=== PATIENT | female | born 1985 | race Hispanic/Latino ===

== ENCOUNTER 2017-10-02 06:29 | Inpatient (IN) | payer OTHER ==
[2017-10-02 07:43] VITALS: BMI 35.9
[2017-10-02] MEDS ORDERED: Butorphanol Tartrate 1 MG/ML VIAL SLOW IVP PRN ×2 (07:43→07:47)
[2017-10-02] MEDS ORDERED: Lidocaine 1% (PF) 30 ML VIAL SC PRN (07:43)
[2017-10-02] MEDS ORDERED: Ondansetron HCl/PF 4 MG/2 ML Vial IVP PRN ×4 (07:43→18:11)
[2017-10-02] MEDS ORDERED: Lactated Ringer's 1,000 ML IV SCH (07:43)
[2017-10-02] MEDS ORDERED: Ibuprofen 800 MG TAB PO PRN (07:43)
[2017-10-02] MEDS ORDERED: NS / Oxytocin 40 units/1000ml 1,000 ML IV PRN (07:43)
[2017-10-02] MEDS ORDERED: Promethazine HCl 25 MG/ML VIAL IM PRN ×3 (07:43→11:17)
[2017-10-02] MEDS ORDERED: HYDROcodone/Acetaminophen 5/325 mg Tablet PO PRN ×2 (07:43)
[2017-10-02] MEDS ORDERED: Diphenoxylate HCl/Atropine Tablet PO PRN ×2 (07:43)
[2017-10-02] MEDS ORDERED: NS w/ Oxytocin 10 units 500 ML IV SCH (07:43)
[2017-10-02] MEDS ORDERED: Acetaminophen 500 MG TAB PO PRN ×2 (07:43→07:47)
[2017-10-02] MEDS ORDERED: Docusate 100 MG CAP PO PRN (07:43)
[2017-10-02 07:54] LABS: Hemoglobin 11.7 g/dL (12.0-16.0); Mean Corpuscular HGB CONC 34.1 g/dL (32.0-36.0); Mean Corpuscular Hemoglobin 30.5 pg (27.0-31.0); Mean Corpuscular Volume 89.4 fL (78.0-98.0); Mean Platelet Volume 9.6 fL (7.4-10.4); Platelet Count 198 thou/uL (130-400); RBC Distribution Width 12.7 % (11.5-14.5); Red Blood Cell (RBC) Count 3.82 mill/uL (4.20-5.40); White Blood Cell (WBC) Count 8.9 thou/uL (4.8-10.8)
[2017-10-02] MEDS ORDERED: NS w/ Oxytocin 10 units 500 ML IVPB SCH (08:00)
[2017-10-02] MEDS: Lactated Ringer's 1,000 ML IV SCH ×3 (08:01→14:42)
[2017-10-02 08:31] LABS: HBSAg Index 0.21 S/CO (0-0.99); Hep B Surf Ag Non-Reactive S/CO (NonReactive); Syphilis Antibody Nonreactive (Nonreactive); Syphilis Antibody Index 0.06 S/CO (<1.00 Non-Reactive)
[2017-10-02] MEDS ORDERED: Bupivacaine 0.75% 13.4 ML, fentaNYL Citrate/PF 400 MCG in Sodium Chloride 0.9% 78.6 ML EPIDURAL SCH (09:30)
[2017-10-02] MEDS ORDERED: DISCONTINUE ALL PREVIOUS NARCOTICS FS SCH (09:30)
[2017-10-02] MEDS ORDERED: Lidocaine HCl/Epinephrine 5 ML AMPUL IJ ONE (10:48)
[2017-10-02] MEDS ORDERED: Lactated Ringer's 500 ML IV PRN (11:17)
[2017-10-02] MEDS ORDERED: diphenhydrAMINE 50 MG/ML VIAL IVP PRN (11:17)
[2017-10-02] MEDS ORDERED: Acetaminophen 325 MG TAB PO PRN (11:17)
[2017-10-02] MEDS ORDERED: Naloxone HCl 0.4 mg/ml Vial IVP PRN ×2 (11:17)
[2017-10-02] MEDS ORDERED: ePHEDrine/0.9% NaCl/PF SYRINGE 50 mg/10 ml SLOW IVP PRN (11:17)
[2017-10-02] MEDS ORDERED: Eucerin (Mineral Oil/Petrolatum,White) 30 gm Jar TOP PRN (11:17)
[2017-10-02] MEDS ORDERED: Communication Order-Pharmacy FS SCH (11:30)
[2017-10-02] MEDS ORDERED: fentaNYL Citrate/PF 400 MCG, Bupivacaine 0.5% 20 ML in Sodium Chloride 0.9% 72 ML EPIDURAL SCH (11:30)
[2017-10-02] MEDS ORDERED: Lanolin Ointment 7 GM TUBE TOP PRN (18:11)
[2017-10-02] MEDS ORDERED: diphenhydrAMINE 25 MG CAP PO PRN (18:11)
[2017-10-02] MEDS ORDERED: Benzocaine/Menthol 20-0.5% 60 ML CAN TOP PRN (18:11)
[2017-10-02] MEDS ORDERED: Bisacodyl 10 MG SUPP PR PRN (18:11)
[2017-10-02] MEDS ORDERED: Milk Of Magnesia 30 ML UDCUP PO PRN (18:11)
[2017-10-02] MEDS ORDERED: Zolpidem Tartrate 5 MG TAB PO PRN (18:11)
[2017-10-02] MEDS ORDERED: Preparation H Ointment 28 GM TUBE PR PRN (18:11)
[2017-10-02] MEDS ORDERED: Acetaminophen/Codeine 30-300mg Tablet PO PRN ×2 (18:11)
[2017-10-02] MEDS ORDERED: NS / Oxytocin 40 units/1000ml 1,000 ML IV SCH (18:15)
[2017-10-02] MEDS: Docusate Calcium (SURFAK) 240 MG CAP PO SCH (21:48)
[2017-10-02] MEDS: Ibuprofen 800 MG TAB PO SCH (21:48)
[2017-10-03] MEDS: Ibuprofen 800 MG TAB PO SCH ×3 (05:32→21:24)
[2017-10-03 05:50] LABS: Hemoglobin 10.9 g/dL (12.0-16.0); Mean Corpuscular HGB CONC 33.3 g/dL (32.0-36.0); Mean Corpuscular Hemoglobin 29.8 pg (27.0-31.0); Mean Corpuscular Volume 89.4 fL (78.0-98.0); Mean Platelet Volume 9.1 fL (7.4-10.4); Platelet Count 187 thou/uL (130-400); RBC Distribution Width 12.7 % (11.5-14.5); Red Blood Cell (RBC) Count 3.67 mill/uL (4.20-5.40); White Blood Cell (WBC) Count 10.7 thou/uL (4.8-10.8)
[2017-10-03] MEDS ORDERED: Adacel (T-DAP) 0.5 ML VIAL IM ONE (09:00)
[2017-10-03] MEDS: Ferrous Sulfate 325 MG TAB PO SCH ×2 (09:09→21:15)
[2017-10-03] MEDS: Prenatal Vitamin 1 TAB PO SCH (09:17)
[2017-10-03] MEDS: Docusate Calcium (SURFAK) 240 MG CAP PO SCH ×2 (09:17→21:24)
[2017-10-03 21:14] VITALS: TEMP 98.8
[2017-10-04] MEDS: Ibuprofen 800 MG TAB PO SCH (06:03)
[2017-10-04 07:35] VITALS: BP 137/65
[2017-10-04] MEDS: Ferrous Sulfate 325 MG TAB PO SCH (08:58)
[2017-10-04] MEDS: Prenatal Vitamin 1 TAB PO SCH (09:00)
[2017-10-04] MEDS: Docusate Calcium (SURFAK) 240 MG CAP PO SCH (09:00)
== END 2017-10-04 13:30 | disposition home or self-care (01) | DRG 775 ==
LOC: L&D 06:29 → 3SW 21:11
PROVIDERS: ADMIT Obstetrics & Gynecology; ATTEND Obstetrics & Gynecology
PROC: 10E0XZZ Delivery of Products of Conception, External Approach (ICD-10-PCS; principal; 2017-10-02)
PROC: 10907ZC Drainage of Amniotic Fluid, Therapeutic from Products of Conception, Via Natural or Artificial Opening (ICD-10-PCS; 2017-10-02)
PROC: 3E033VJ Introduction of Other Hormone into Peripheral Vein, Percutaneous Approach (ICD-10-PCS; 2017-10-02)
DX: O16.4 Unspecified maternal hypertension, complicating childbirth (principal); Z3A.39 39 weeks gestation of pregnancy; Z37.0 Single live birth
CPT/HCPCS: 36415; 51702; 85027; 86780; 86850; 86900; 86901; 87340; J2001; J3010; J3490; J7050

== ENCOUNTER 2017-10-05 06:20 | Emergency (ER) | payer OTHER ==
[2017-10-05] MEDS ORDERED: hydrALAZINE 25 MG TAB ONE (06:52)
[2017-10-05 07:12] LABS: #Basophils 0.1 thou/uL (0.0-0.2); #Eosinphils 0.2 thou/uL (0.0-0.7); #Lymphocytes 2.3 thou/uL (1.20-3.40); #Monocytes 0.7 thou/uL (0.11-0.59); #Neutrophils 4.8 thou/uL (1.40-6.50); %Eosinophils 2.4 % (0.0-10.0); %Lymphocytes 28.6 % (21.0-51.0); %Monocytes 8.8 % (0.0-10.0); %Neutrophils 59.2 % (42.0-75.0); Hemoglobin 10.8 g/dL (12.0-16.0); Mean Corpuscular HGB CONC 34.2 g/dL (32.0-36.0); Mean Corpuscular Hemoglobin 30.6 pg (27.0-31.0); Mean Corpuscular Volume 89.6 fL (78.0-98.0); Mean Platelet Volume 9.1 fL (7.4-10.4); Platelet Count 201 thou/uL (130-400); RBC Distribution Width 12.9 % (11.5-14.5); Red Blood Cell (RBC) Count 3.52 mill/uL (4.20-5.40); White Blood Cell (WBC) Count 8.1 thou/uL (4.8-10.8)
[2017-10-05 07:29] LABS: ALT (SGPT) 10 U/L (8-55); AST (SGOT) 14 U/L (5-34); Alkaline Phosphatase 118 U/L (40-150); Anion Gap 12 mmol/L (10-20); BUN (Urea Nitrogen) 8 mg/dL (7.0-18.7); Bilirubin, Total 0.3 mg/dL (0.2-1.2); Calc. Creatinine Clearance 0 mL/min (70-130); Calcium 8.7 mg/dL (7.8-10.44); Carbon Dioxide 22 mmol/L (22-29); Chloride 110 mmol/L (98-107); Estimated GFR-MDRD Greater than 90; Globulin 2.8 g/dL (2.4-3.5); Glucose 83 mg/dL (70-105); Potassium 3.7 mmol/L (3.5-5.1); Protein, Total 5.8 g/dL (6.0-8.3); Sodium 140 mmol/L (136-145)
[2017-10-05 07:34] LABS: CKMB 0.7 ng/mL (0-6.6); Troponin I Less than 0.010 ng/mL (< 0.028)
--- NOTE | 2017-10-05 07:39 | RAD ---
PORTABLE CHEST: Date: 10/05/17 INDICATION: Chest pain. FINDINGS: Lung sevilla are clear. Heart and mediastinum appear normal. IMPRESSION: Unremarkable chest. POS: [facility]
[2017-10-05 08:03] LABS: Bilirubin Negative (Negative); Blood, Urine Large (Negative); Clarity CLOUDY (Clear); Glucose, Urine (Dipstick) Negative (Negative); Leukocyte Moderate (Negative); Nitrite Negative (Negative); Protein, Urine (Dipstick) Trace mg/dL (Neg-Trace); Specific Gravity, Urine 1.016 (1.002-1.036)
[2017-10-05 08:06] LABS: Bacteria/HPF 1+ HPF (None Seen); Hyaline Casts/LPF 0-3 HYALINE CAST LPF (0-3 Hyaline); Pathc Cast-AUWi Flag 0.72 (0-2.49); RBC/HPF GREATER THAN 50-TNTC HPF (0-3); Squamous Epithelial 0-3 HPF (0-3)
--- NOTE | 2017-10-05 10:31 | CT ---
CT ANGIOGRAM CHEST INCLUDING 3D RENDERING: Date: 10/05/17 HISTORY: 32-year-old female with history of 3 days with chest pain and shortness of breath. FINDINGS: No significant CT evidence for acute PE. The aorta appears unremarkable. No pulmonary parenchymal pro cess. No pleural effusion or pericardial effusion. Visualized upper abdomen is unremarkable. IMPRESSION: Unremarkable chest CT angiogram. No CT evidence for significant acute PE. POS: [facility]
[2017-10-05] MEDS ORDERED: ISOVUE-370 76%-LOCM 1 ML ONE (14:23)
== END 2017-10-05 09:56 | disposition home or self-care (01) ==
LOC: ERS 06:20
DX: O13.5 Gestational [pregnancy-induced] hypertension without significant proteinuria, complicating the puerperium (principal); O86.22 Infection of bladder following delivery
CPT/HCPCS: 36415; 71045; 71275; 80053; 81003; 81015; 82553; 84484; 85025; 93005

== ENCOUNTER 2017-10-08 18:27 | Observation (INO) | payer OTHER ==
[2017-10-08] MEDS ORDERED: NIFEdipine 10 MG CAP PO PRN (19:04)
[2017-10-08] MEDS ORDERED: Magnesium Sulfate 20 gm/500 ml 20 GM/500 ML BAG ONE (19:07)
[2017-10-08] MEDS ORDERED: Zolpidem Tartrate 5 MG TAB PO PRN (19:07)
[2017-10-08] MEDS: Magnesium Sulfate 20 gm/500 ml 20 GM/500 ML BAG IVPB SCH (19:09)
[2017-10-08] MEDS ORDERED: Calcium Gluc 4.6 MEQ/10 ML (100 MG/ML) IV PRN (19:10)
[2017-10-08] MEDS ORDERED: Lactated Ringer's 1,000 ML IV SCH (19:15)
[2017-10-08 19:19] VITALS: BMI 31.2
[2017-10-08 19:33] LABS: #Basophils 0.1 thou/uL (0.0-0.2); #Eosinphils 0.2 thou/uL (0.0-0.7); #Lymphocytes 1.8 thou/uL (1.20-3.40); #Monocytes 0.7 thou/uL (0.11-0.59); #Neutrophils 3.8 thou/uL (1.40-6.50); %Basophils 1.2 % (0.0-1.0); %Eosinophils 3.3 % (0.0-10.0); %Lymphocytes 27.3 % (21.0-51.0); %Monocytes 10.4 % (0.0-10.0); %Neutrophils 57.8 % (42.0-75.0); Hemoglobin 12.3 g/dL (12.0-16.0); Mean Corpuscular Hemoglobin 30.4 pg (27.0-31.0); Mean Corpuscular Volume 89.5 fL (78.0-98.0); Mean Platelet Volume 8.4 fL (7.4-10.4); Platelet Count 259 thou/uL (130-400); RBC Distribution Width 12.7 % (11.5-14.5); Red Blood Cell (RBC) Count 4.05 mill/uL (4.20-5.40); White Blood Cell (WBC) Count 6.6 thou/uL (4.8-10.8)
[2017-10-08] MEDS: Acetaminophen 325 MG TAB PO PRN ×2 (19:36→23:09)
[2017-10-08 19:42] LABS: ALT (SGPT) 15 U/L (8-55); AST (SGOT) 13 U/L (5-34); Albumin 3.6 g/dL (3.5-5.0); Alkaline Phosphatase 110 U/L (40-150); Anion Gap 13 mmol/L (10-20); BUN (Urea Nitrogen) 11 mg/dL (7.0-18.7); Bilirubin, Total 0.4 mg/dL (0.2-1.2); Calc. Creatinine Clearance 152 mL/min (70-130); Calcium 9.2 mg/dL (7.8-10.44); Carbon Dioxide 22 mmol/L (22-29); Chloride 109 mmol/L (98-107); Estimated GFR-MDRD Greater than 90; Globulin 2.5 g/dL (2.4-3.5); Glucose 117 mg/dL (70-105); Potassium 3.8 mmol/L (3.5-5.1); Protein, Total 6.1 g/dL (6.0-8.3); Sodium 140 mmol/L (136-145)
[2017-10-08] MEDS ORDERED: Butorphanol Tartrate 1 MG/ML VIAL SLOW IVP SCH (20:45)
[2017-10-09] MEDS ORDERED: Morphine 4 MG/ML VIAL IV SCH (01:30)
[2017-10-09] MEDS: Magnesium Sulfate 20 gm/500 ml 20 GM/500 ML BAG IVPB SCH (05:21)
[2017-10-09] MEDS: Acetaminophen 325 MG TAB PO PRN (08:56)
[2017-10-09] MEDS: diphenhydrAMINE 50 MG/ML VIAL IVP PRN ×2 (10:40→11:40)
[2017-10-09] MEDS: Metoclopramide HCl 10 MG/2 ML VIAL IVP PRN ×4 (10:41→12:20)
[2017-10-09] MEDS ORDERED: Gadobenate Dimeglumine 529 MG/1 ML (20ML VIAL) ONE (10:54)
[2017-10-09] MEDS ORDERED: SUMAtriptan Succinate 6 MG/0.5 ML VIAL SC SCH (16:00)
--- NOTE | 2017-10-09 16:28 | MRI ---
MRI BRAIN WITH AND WITHOUT CONTRAST: 10/09/17 Multiplanar and multisequential imaging of the brain obtained. Post gadolinium images were obtained. A pituitary protocol was followed with dynamic imaging of the pituitary in coronal and sagittal imagi ng. INDICATIONS: Headache. Pituitary adenoma. There are no comparison studies. FINDINGS: The ventricles have normal size and position. No evidence of mass or edema. No evidence of restricted diffusion. There is no white matter abnormality identified. The pituitary has normal size and appearance on pituitary imaging. On dynamic enhanced imaging, there is some heterogeneity in the pituitary which appears to be vascular. No focal mass or adenoma identi fied. IMPRESSION: Unremarkable MRI of brain and pituitary. POS: [facility]
--- NOTE | 2017-10-09 16:35 | CON ---
DATE OF CONSULTATION: 10/09/2017 REFERRING PROVIDER: Dr. Shilpa Herrera. REASON FOR CONSULTATION: Intractable headache. HISTORY OF PRESENT ILLNESS: Ms. Alexander is a pleasant 32-year-old female day #6 p resented with severe intractable headache. Patient reports that on Saturday morning, she started notic ing pain in the back of her head that started radiating up and within few minutes it was holocraniall y, the pain was throbbing and sharp in quality. It was severe intensity. She had blurred vision in right eye, tinnitus in the right ear along with numbness and tingling in the left face, arm, and leg. She also had some dizziness. She had gone to emergency room where she was given medication and dis charged to home. She presented back again to [facility] and was being admitted for further workup for this intractable headache. She notes that the headaches have been constant and unrelenting sinc e last Saturday. She has some nausea, but denies any vomiting. She denies diplopia, ptosis, dysarthri a, dysphagia and difficulty with balance or difficulty with bowel or bladder function. She did have blurred vision in right eye along with tinnitus in the right ear and numbness and tingling in the lef t side of her body which is now resolved. After being presented to the Labor and Delivery, she has b een given migraine cocktail with Benadryl, Reglan as well as morphine and magnesium without any help. She reports that she does have a history of migraines in the past. She also has history of prolact inoma. She states that migraines used to occur 2 or 3 times per month and she would take Maxalt, whi ch would help relieve the headache. She has not had any migraine type headache over the past 1 year. She did not have any headache during her . PAST MEDICAL HISTORY: Significant for migraine and prolactinoma. PAST SURGICAL HISTORY: None significant. SOCIAL HISTORY: She denies smoking, alcohol use, or illicit drug use. CURRENT MEDICATIONS: Include vitamin. ALLERGIES: Include ERYTHROMYCIN. FAMILY HISTORY: Noncontributory. REVIEW OF SYSTEMS: As mentioned above in HPI, otherwise negative. PHYSICAL EXAMINATION: VITAL SIGNS: Blood pressure of 142/80, pulse of 96, temperature of 98.8, respirations of 16. GENERAL: Well-developed and well-nourished female in no apparent distress. RESPIRATORY: Clear to auscultation bilaterally. CARDIOVASCULAR: Regular rate and rhythm. NEUROLOGIC: Mental status: The patient is awake, alert, oriented x3. Speech and language: Fluent speech. Cranial nerves: Pupils are 3 mm and reactive. Visual sevilla are intact. External muscles are intact. No nystagmus is noted. No ptosis noted. Face appears symmetric. Tongue and uvula are midline. Motor exam showed normal tone and bulk with a 5/5 strength in both upper and lower extremit ies. Sensory: Sensation is intact and symmetric. Deep tendon reflexes 2+ reflexes in both upper an d lower extremities. Babinski: Plantar responses flexion bilaterally. Coordination intact to finge [id number], finger tapping bilaterally. She has no nuchal rigidity in the exam. Kernig and Brudz inski signs are negative. LABORATORY DATA: Reviewed, which included CBC and CMP, which is essentially normal. IMAGING STUDIES: MRI brain with and without contrast was reviewed, which showed no acute intracrania l abnormality. There is no sign of meningeal enhancement. Official report is still pending. IMPRESSION: Intractable migraine without aura. ASSESSMENT AND PLAN: Ms. Alexander is a pleasant 32-year-old female who presented with intract able headache that started on last Saturday. She is day #6. On exam, I did not appreciate any nuchal rigidity or neck stiffness. Kernig and Brudzinski signs were negative. She has not had a ny fever. This would make meningitis less likely as cause for headaches. Her LFTs are normal and bl ood pressure is normal in the mildly high normal range and an MRI did not show any sign of any PRES s yndrome. Thus, preeclampsia/PRES syndrome is less likely. In my opinion, this headache is likely mi graine in origin. I will give her Imitrex subcu 6 mg 1 dose to see if that help alleviate her headac hes. Since this is the first headache in the past more than 1 year, I would not recommend sending he r on any preventive therapy. She may continue p.r.n. rescue therapy for migraines if they do become more frequent. Then, I would recommend starting her on amitriptyline 25 mg at bedtime for preventive therapy. If the patient's headache improves after Imitrex injections, she is okay to be discharged to home. Thank you for consultation.
[2017-10-09 18:08] VITALS: BP 143/89; TEMP 98.4
== END 2017-10-09 19:22 | disposition home or self-care (01) ==
LOC: L&D 18:27 → INTOOBSV 18:27 → L&D 19:27
PROVIDERS: ADMIT Obstetrics & Gynecology; ATTEND Obstetrics & Gynecology
DX: O99.355 Diseases of the nervous system complicating the puerperium (principal); G43.019 Migraine without aura, intractable, without status migrainosus; Z79.899 Other long term (current) drug therapy; Z88.8 Allergy status to other drugs, medicaments and biological substances
CPT/HCPCS: 70553; 80053; 85025; 96365; 96366; 96372; 96375; 96376; 99285; A9579; G0378; J0595; J1200; J2270; J2765; J3030; J3475